=== PATIENT | male | born 1950 | race Caucasian/White ===

== ENCOUNTER → 2017-09-29 | Outpatient (CLI) | payer OTHER | LOC: FIMAGING 12:10 | PROVIDERS: ATTEND Physician Assistant | DX: J18.9 Pneumonia, unspecified organism (principal) ==

== ENCOUNTER 2017-10-04 14:53 | Emergency (ER) | payer OTHER ==
[2017-10-04 15:03] VITALS: TEMP 97.5
--- NOTE | 2017-10-04 15:38 | EDPHY ---
H & P Stated Complaint: DX PNA, getting worse Time Seen by Provider: 10/04/17 15:05 HPI/ROS: Chief Complaint: Pneumonia, worsening shortness of breath HPI: 67-year-old male was diagnosed with pneumonia 5 days ago and started on doxycycline. Patient states that his symptoms are getting worse. He has having worsening shortness of breath and severe dyspnea on exertion and worsening cough. He has been taking codeine and hydrocodone for cough with no relief. Patient states his symptoms began about 2 weeks ago when he was in a rehab facility status post a left knee replacement. He was not started on antibiotics until last Friday. He has had some subjective fevers and chills at home. Has pain with cough but no central chest tightness. No abdominal pain. No muscle aches. No headache. Family had noticed some increasing difficulty breathing and mild confusion. ROS: 10 point Review of Systems is negative except as noted in the HPI. PMH: Meniere's disease, hypothyroidism Social History: No smoking, no alcohol, no recreational drug use Family History: non-contributory Physical Exam: Gen: Awake, Alert, No Distress HEENT: Nose: no rhinorrhea Eyes: PERRLA, EOMI Mouth: Moist mucosa Neck: Supple, no JVD Chest: nontender, diminished breath sounds at the left base Heart: S1, S2 normal, no murmur Abd: Soft, non-tender, no guarding Back: no CVA tenderness, no midline tenderness Ext: no edema, non-tender Skin: no rash Neuro: CN II-XII intact, Sensation grossly intact, Strength 5/5 in bilateral upper and lower extremities - Personal History Current Tetanus/Diphtheria Vaccine: Yes Current Tetanus Diphtheria and Acellular Pertussis (TDAP): Yes - Medical/Surgical History Hx Asthma: No Hx Chronic Respiratory Disease: Yes Hx Diabetes: No Hx Cardiac Disease: No Hx Renal Disease: No Hx Cirrhosis: No Hx Alcoholism: No Hx HIV/AIDS: No Hx Splenectomy or Spleen Trauma: No Other PMH: depression, thyroid - Social History Smoking Status: Former smoker Constitutional: Initial Vital Signs Temperature (C) 36.4 C 10/04/17 14:59 Heart Rate 69 10/04/17 14:59 Respiratory Rate 16 10/04/17 14:59 Blood Pressure 117/73 10/04/17 14:59 O2 Sat (%) 100 10/04/17 14:59 O2 Delivery Mode Room Air Allergies/Adverse Reactions: No Known Allergies Allergy (Unverified 10/04/17 14:55) Home Medications: Medication Instructions Recorded Allertec 10/04/17 Celecoxib 10/04/17 Doxycycline Calcium 10/04/17 Duoneb (*) 10/04/17 FLUCONAZOLE-NS 100 MG/50 ML 10/04/17 Memantine HCl 10/04/17 Montelukast Sodium 10/04/17 Narcotic Cough Medicine 10/04/17 Omeprazole 10/04/17 Oxycodone HCl 10/04/17 SUMAtriptan 10/04/17 Synthroid 10/04/17 Venlafaxine Xr 10/04/17 Medical Decision Making - Diagnostics Imaging Results: Imaging Impressions Chest X-Ray 10/04/17 15:23 Impression: Bronchitis versus viral pneumonitis. No pneumonia. Imaging: I viewed and interpreted images myself ED Course/Re-evaluation: 67-year-old male presenting with worsening respiratory symptoms at diagnosis of pneumonia on Friday. He is afebrile. He is not hypoxemic. He is mildly tachypneic but this improved after a DuoNeb. Has a normal white count. Chest x -ray shows no infiltrate but some bronchitis. Cough has improved after bronchodilators. He is otherwise well-appearing. Will discharge with an albuterol inhaler with a spacer, follow up with primary care physician in 2-3 days. - Data Points Laboratory Results: Laboratory Results 10/04/17 15:30 10/04/17 15:30 10/04/17 10/04/17 15:30 15:30 WBC 9.42 10^3/uL 10^3/uL (3.80-9.50) RBC 3.49 10^6/uL L 10^6/uL (4.40-6.38) Hgb 11.4 g/dL L g/dL (13.7-17.5) Hct 33.2 % L % (40.0-51.0) MCV 95.1 fL fL (81.5-99.8) MCH 32.7 pg pg (27.9-34.1) MCHC 34.3 g/dL g/dL (32.4-36.7) RDW 13.2 % % (11.5-15.2) Plt Count 339 10^3/uL 10^3/uL (150-400) MPV 9.1 fL fL (8.7-11.7) Neut % (Auto) 69.0 % % (39.3-74.2) Lymph % (Auto) 19.2 % % (15.0-45.0) [place] % (Auto) 6.4 % % (4.5-13.0) Eos % (Auto) 4.6 % % (0.6-7.6) Baso % (Auto) 0.4 % % (0.3-1.7) Nucleat RBC Rel Count 0.0 % % (0.0-0.2) Absolute Neuts (auto) 6.50 10^3/uL 10^3/uL (1.70-6.50) Absolute Lymphs (auto) 1.81 10^3/uL 10^3/uL (1.00-3.00) Absolute Monos (auto) 0.60 10^3/uL 10^3/uL (0.30-0.80) Absolute Eos (auto) 0.43 10^3/uL H 10^3/uL (0.03-0.40) Absolute Basos (auto) 0.04 10^3/uL 10^3/uL (0.02-0.10) Absolute Nucleated RBC 0.00 10^3/uL 10^3/uL (0-0.01) Immature Gran % 0.4 % % (0.0-1.1) Immature Gran # 0.04 10^3/uL 10^3/uL (0.00-0.10) Sodium 144 mEq/L mEq/L (135-145) Potassium 4.3 mEq/L mEq/L (3.5-5.2) Chloride 110 mEq/L mEq/L (97-110) Carbon Dioxide 18 mEq/l L mEq/l (22-31) Anion Gap 16 mEq/L mEq/L (8-16) BUN 16 mg/dL mg/dL (7-23) Creatinine 0.9 mg/dL mg/dL (0.7-1.3) Estimated GFR > 60 Glucose 90 mg/dL mg/dL (70-100) Calcium 9.0 mg/dL mg/dL (8.5-10.4) Medications Given: Discontinued Medications Albuterol/Ipratropium (Duoneb) 3 ml IH EDNOW ONE Stop: 10/04/17 16:05 Last Admin: 10/04/17 16:07 Dose: 3 ml Departure - Departure Disposition: Home, Routine, Self-Care Clinical Impression: Bronchitis Condition: Good Instructions: Acute Bronchitis (ED), Bronchospasm (ED), Albuterol (By breathing ) Additional Instructions: Use your albuterol inhaler, 2 puffs every 4 hr. Always use a spacer when you use your inhaler. Complete your course of antibiotics as prescribed by your physician. Follow up with your doctor in 2-3 days for further evaluation. Return to the emergency department for worsening shortness of breath, uncontrolled fevers or chills, chest pain, or any other concerns. Referrals: Aicha Cabrera MD [Primary Care Provider] - As per Instructions
[2017-10-04 15:47] LABS: PLATELET COUNT 339 10^3/uL (150-400)
[2017-10-04] MEDS ORDERED: IPRATROPIUM/ALBUTEROL 3 ML DEYVIAL IH ONE (16:04)
[2017-10-04] MEDS ORDERED: ALBUTEROL INH PREPACK MDI TAKEHOME ONE (16:36)
[2017-10-04 16:59] VITALS: BP 124/78; PULSE 75; RESP 25; O2SAT 99
== END 2017-10-04 16:59 | disposition home or self-care (01) ==
DX: J40 Bronchitis, not specified as acute or chronic (principal); Z87.891 Personal history of nicotine dependence

== ENCOUNTER 2018-01-21 09:16 | Emergency (ER) | payer OTHER ==
[2018-01-21] MEDS ORDERED: HYDROmorphONE/DILAUDID 2 MG/ML INJ IVP ONE (09:31)
[2018-01-21] MEDS ORDERED: DEXAMETHASONE 4 MG/ML VIAL IVP ONE (09:31)
[2018-01-21] MEDS ORDERED: DIAZEPAM 5 MG/ML 1 ML SYR IVP ONE (09:31)
--- NOTE | 2018-01-21 09:36 | EDPHY ---
H & P Stated Complaint: l lateral neck pain /nontraumatic Source: Patient, Family () Exam Limitations: No limitations - Personal History Current Tetanus/Diphtheria Vaccine: Yes - Medical/Surgical History Hx Asthma: No Hx Chronic Respiratory Disease: Yes Hx Diabetes: No Hx Cardiac Disease: No Hx Renal Disease: No Hx Cirrhosis: No Hx Alcoholism: No Hx HIV/AIDS: No Hx Splenectomy or Spleen Trauma: No Other PMH: depression, thyroid - Social History Smoking Status: Former smoker Time Seen by Provider: 01/21/18 09:32 HPI/ROS: HPI: This is a 59-year-old male who presents with Chief Complaint: left lateral neck pain /nontraumatic Location: Left lateral neck Quality: Pain Duration: 2-4 days Signs and Symptoms: No bleeding, no radiation, no numbness, no weakness, no tingling, + decreased range of motion, no swelling, no pain, no fever, no headache, no neck stiffness Timing: Worsening Severity: 05/11 Context: Patient reports that approximately 5 days ago he had the pneumococcal vaccination in his left upper arm. He reports that he had a significant reaction from the injection cause and moderate swelling, tenderness and muscular pain. He reports approximately 1-2 days after the pneumococcal vaccination, he started to experience left lateral neck discomfort. He reports that the discomfort was increased when he turned his head from side to side. He denies any local trauma/injury. No prior history of cervical pain. Denies radicular symptoms. Patient reports that overnight his neck pain began to worsen to the point that he is unable to sit still at this time. Patient reports that his pain is improved if he lies flat on the ER stretcher. Modifying Factors: None Comment: ROS: see HPI Constitutional: No fever, no chills, no weight loss Eyes: No blurred vision Respiratory: No shortness of breath, no cough Cardiovascular: No chest pain Gastrointestinal: No nausea, no vomiting no diarrhea Genitourinary: No dysuria Extremities: No myalgias Neurologic: No weakness, no numbness Skin: No rashes Hematologic: No bruising, no bleeding MEDICAL/SURGICAL/SOCIAL HISTORY: Medical history: Depression, hypothyroidism, migraine headache. Surgical history: Denies Social history: . Retired. CONSTITUTIONAL: awake and alert, moderate distress elderly white male, at bedside HEENT: Atraumatic and normocephalic. NECK: supple, no midline tenderness, flexion 20 degrees, extension 15 degrees, right and left lateral flexion 15 degrees. No meningismus. Cardiovascular: Normal S1/S2, regular rate, regular rhythm, without murmur rub or gallop. PULMONARY/CHEST: Symmetrical and nontender. Clear to auscultation bilaterally. Good air movement. No accessory muscle usage. ABDOMEN: Soft, nondistended, nontender. BACK: No midline tenderness, No foot drop. EXTREMITIES: 2/2 pulses, strength 5/5. no deformities, no clubbing, no cyanosis or edema. NEUROLOGICAL: no focal neuro deficits. GCS 15. Speech is a bit pressured secondary to pain. SKIN: Warm and dry, no erythema. no rash. Good capillary refill. (Sarahy Krause) Constitutional: Initial Vital Signs Temperature (C) 36.4 C 01/21/18 09:19 Heart Rate 75 01/21/18 09:19 Respiratory Rate 18 01/21/18 09:19 Blood Pressure 122/93 H 01/21/18 09:19 O2 Sat (%) 97 01/21/18 09:19 O2 Delivery Mode Nasal Cannula O2 (L/minute) 2 Allergies/Adverse Reactions: No Known Allergies Allergy (Verified 01/21/18 09:17) Home Medications: Medication Instructions Recorded Allertec 10/04/17 Celecoxib 10/04/17 Duoneb (*) 10/04/17 FLUCONAZOLE-NS 100 MG/50 ML 10/04/17 Memantine HCl 10/04/17 Omeprazole 10/04/17 SUMAtriptan 10/04/17 Synthroid 10/04/17 Venlafaxine Xr 10/04/17 Cyclobenzaprine [Flexeril 10 MG 10 mg PO TID PRN #15 tab 01/21/18 (*)] Hydrocodone/APAP 5/325 [[place] 1 - 2 tab PO Q4H PRN #10 tab 01/21/18 5/325 (*)] Medical Decision Making - Diagnostics Imaging Results: Imaging Impressions Cervical Spine X-Ray 01/21/18 09:31 Impression: Negative for acute osseous abnormality with multilevel degenerative changes noted. If symptoms persist, MRI could be considered for further evaluation.. ED Course/Re-evaluation: Cervical x-rays and IV medication ordered. 0940: Given IV Valium 5 mg, IV Dilaudid 0.5 mg, IV Decadron No signs of cardiac/neurologic/infectious process 1000: Reassessed patient. He reports that he has moderate relief of pain and spasm. He is starting to be able to turn his neck from side to side now. Cervical x-ray reviewed via PACs. Shows mild degenerative changes multi-level with straightening of the lordosis. Given a prescription for Flexeril and [place]. This patient was seen under the supervision of my secondary supervising physician. I evaluated care for this patient independently. Discussed this patient with Dr. Ortiz who did see the patient. (Sarahy Krause) Differential Diagnosis: Differential diagnosis includes but is not limited to cervical degenerative disc disease with radiculopathy, paraspinous muscle spasm, torticollis, cervical strain, Clark angina, left shoulder bursitis. (Sarahy Krause) Other Provider: PHYSICIAN DOCUMENTATION: The patient was evaluated and managed by the Physician Nursing Education Consultant and myself. I have reviewed the chart and agree with the findings and plan of care as documented. In addition, I examined the patient myself at 1015. History confirmed as nontraumatic neck pain. 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 Much more likely torticollis then vascular dissection or SANITARIAN infection or ACS. I am the secondary supervising physician. (Kobe Ortiz) - Data Points Medications Given: Discontinued Medications Dexamethasone (Decadron Injection) 8 mg IVP EDNOW ONE Stop: 01/21/18 09:32 Last Admin: 01/21/18 09:43 Dose: 8 mg Diazepam (Valium) 5 mg IVP EDNOW ONE Stop: 01/21/18 09:32 Last Admin: 01/21/18 09:44 Dose: 5 mg Hydromorphone HCl (Dilaudid) 0.5 mg IVP EDNOW ONE Stop: 01/21/18 09:32 Last Admin: 01/21/18 09:46 Dose: Not Given Hydromorphone HCl (Dilaudid) 0.5 mg IVP EDNOW ONE Stop: 01/21/18 09:46 Last Admin: 01/21/18 09:44 Dose: 0.5 mg Departure - Departure Disposition: Home, Routine, Self-Care Clinical Impression: Cervical paraspinous muscle spasm Condition: Good Instructions: Spasmodic Torticollis (ED) Additional Instructions: Use Flexeril every 8 hours as needed for muscle spasms. Apply moist heat for 30 minutes at a time; 2-3 times per day for the next 1-2 days. Gently perform neck stretching exercises several times per day. If symptoms persist after 5-7 days, follow-up with Neurosurgery for further evaluation. Return to the ER immediately if you experience new or worsening pain, discoloration, numbness, tingling, or any other symptoms that concern you. Referrals: Aicha Cabrera MD [Primary Care Provider] - 3-4 days, if not improved Gustavo Norris MD [Medical Doctor] - As per Instructions Prescriptions: Cyclobenzaprine [Flexeril 10 MG (*)] 10 mg PO TID PRN #15 tab PRN Reason: Spasms Hydrocodone/APAP 5/325 [[place] 5/325 (*)] 1 - 2 tab PO Q4H PRN #10 tab PRN Reason: Pain, Moderate
[2018-01-21] MEDS ORDERED: HYDROmorphONE/DILAUDID 1 MG/ML INJ ONE (09:39)
[2018-01-21] MEDS ORDERED: HYDROmorphONE/DILAUDID 1 MG/ML INJ IVP ONE (09:45)
[2018-01-21 10:45] VITALS: BP 109/78
== END 2018-01-21 10:48 | disposition home or self-care (01) ==
DX: M62.838 Other muscle spasm (principal); Z87.891 Personal history of nicotine dependence
CPT/HCPCS: 72040; 96374; 96375; 99284; J1100; J1170; J3360

== ENCOUNTER → 2018-06-22 | Outpatient (CLI) | payer OTHER | LOC: FIMAGING 16:49 | PROVIDERS: ATTEND Internal Medicine | DX: M51.16 Intervertebral disc disorders with radiculopathy, lumbar region (principal) ==

== ENCOUNTER → 2018-07-31 | Outpatient (CLI) | payer OTHER | LOC: BHFA 11:00 | PROVIDERS: ATTEND Internal Medicine Cardiovascular Disease | DX: I70.0 Atherosclerosis of aorta (principal) ==

== ENCOUNTER → 2018-10-13 | Outpatient (CLI) | payer OTHER | LOC: FCPNEURO 22:15 | PROVIDERS: ATTEND Student in an Organized Health Care Education/Training Program | DX: G47.33 Obstructive sleep apnea (adult) (pediatric) (principal) ==